=== PATIENT | male | born 1955 | race American Indian/Alaskan Native ===

== ENCOUNTER 2018-04-27 09:56 | Outpatient (CLI) | payer MEDICARE ==
[2018-04-27 10:56] LABS: Blood Urea Nitrogen 7 mg/dL (9-20)
--- NOTE | 2018-04-27 19:57 | Cat Scan Report ---
FINAL REPORT EXAM: CT ANGIO ABD/FEMORAL ABD AORTA HISTORY: ATHEROSCLEROSIS TECHNIQUE: CT angiography of the aorta and bilateral lower extremities. Images are reconstructed in the sagittal and coronal planes. PRIORS: None. FINDINGS: Aorta/iliac arteries: The abdominal aorta is non aneurysmal. There is extensive plaque and moderate n oncalcified plaque in the distal aorta. The origins of the celiac and superior mesenteric arteries ar e normal in diameter and patent. The origin of the right renal artery is patent. The proximal right r enal artery has small amount of coarse calcification. The origin of the left renal artery is patent. There is moderate to severe atherosclerotic calcification in the mid to distal left renal artery. There is severe atherosclerotic calcification at the origin of the right common iliac artery with mil d stenosis. External iliac artery is diffusely heavily calcified but patent. There is likely focal mo derate to severe stenosis in the mid to distal right external iliac artery. There is heavy calcificat ion throughout the internal iliac artery and branches. The left common iliac artery is occluded and t here has been previous grafting from the left common iliac to the left common femoral artery. This gr aft appears occluded. Right lower extremity: Common femoral artery: Severe atherosclerotic calcification with likely severe distal stenosis Superficial femoral artery: Extensive advanced calcified plaque throughout its entire course. The art tika appears to be patent. Deep femoral artery: Advanced calcified plaque throughout. The larger segments appear to opacify. Popliteal artery: Moderate mural calcification. Moderate stenosis. Anterior tibial artery: Extensive mural calcification. Diffusely attenuated but patent. Peroneal artery: Appears patent. Posterior tibial artery: Appears patent. Dorsalis pedis artery: Appears patent. Left lower extremity: Common femoral artery: Graft anastomosis with associated masslike lesion in the area of the common fe moral anastomosis measuring 4.1 x 5.1 cm. This may represent a pseudo aneurysm or a chronic hematoma. No flow is demonstrated in the common femoral artery or graft. Superficial femoral artery: Extensive advanced calcified plaque throughout its entire course. The art tika appears occluded. Deep femoral artery: Extensive mural calcification. No perceptible opacification Popliteal artery: Moderate calcified plaque. No perceptible opacification. Anterior tibial artery: Extensive mural calcification. Peroneal artery: Appears patent. Posterior tibial artery: Appears patent. Dorsalis pedis artery: Appears patent. Other findings: The lung bases are clear. The liver, gallbladder, pancreas and adrenal glands appear normal. There is 1 cm enhancing lesion in the upper spleen most likely representing a hemangioma. There are multiple bilateral renal cysts with the largest in the right kidney arising from the lower pole and measuring 5.1 cm and the largest in the left kidney in the upper pole measuring 1.9 cm. There is a large right ureterocele. The prostate is enlarged. The stomach appears grossly within normal limits. There are no abnormally dilated loops of bowel or acute inflammatory changes. A normal-appearing appe ndix is identified. The bones and subcutaneous soft tissues are unremarkable for age. IMPRESSION: 1. Extensive atherosclerotic disease 2. There appears to been previous grafting from the left common iliac artery to the left common femor al artery. This appears to be occluded. Correlation with surgical history is required, this informati on is not provided. There is no evidence of arterial flow in the left common and superficial femoral arteries or popliteal artery. 3. Graft anastomosis at the left common femoral artery with associated masslike lesion in the area of the anastomosis measuring 4.1 x 5.1 cm. This may represent a pseudo aneurysm or a chronic hematoma. 4. Right bladder ureterocele 5. Please see the full description of findings above.
== END 2018-04-27 09:57 | disposition home or self-care (01) ==
LOC: CT 09:56
PROVIDERS: ATTEND Surgery Vascular Surgery
DX: I70.222 Atherosclerosis of native arteries of extremities with rest pain, left leg (principal); I70.213 Atherosclerosis of native arteries of extremities with intermittent claudication, bilateral legs; I87.323 Chronic venous hypertension (idiopathic) with inflammation of bilateral lower extremity; N28.89 Other specified disorders of kidney and ureter
CPT/HCPCS: 36415; 75635; 82565; 84520; Q9967